=== PATIENT | female | born 1965 | race Two or more races ===

== ENCOUNTER 2016-07-04 21:10 | Emergency (ER) | payer OTHER ==
--- NOTE | 2016-07-04 21:15 | PDOC ---
History of Present Illness - General History Source: Patient Exam Limitations: No Limitations - History of Present Illness Initial Comments: 07/04/16 21:35 The patient is a 50 year old female, with a significant past medical history of bursitis, who presents to the emergency department with persistent right shoulder and right arm pain. The patient reports that she was seen by Dr. Archibald today and had an corticosteroid injection in her right shoulder for the bursitis but reports persistent pain and no relief of symptoms. The patient reports taking Ibuprofen for the pain, with no relief. The patient denies any extremity weakness/numbness/tingling. The patient denies any trauma or injury. PAST MEDICAL HISTORY: See HPI. PAST SURGICAL HISTORY: No significant history. FAMILY HISTORY: No pertinent history. SOCIAL HISTORY: Patient lives with family and is employed. MEDICATIONS: Reviewed. ALLERGIES: As per nursing notes. Adult ROS: General: No fevers or chills, no weakness, no weight loss. HEENT: No change in vision. No sore throat. No ear pain. CardioVascular: No chest pain or shortness of breath. Respiratory: No cough, or wheezing. Gastrointestinal: No nausea, vomiting, diarrhea or constipation, no rectal bleeding. Genitourinary: No dysuria, hematuria, or frequency. Musculoskeletal: +Right shoulder pain, right arm pain. No muscle pain or swelling. Neurologic: No headache, vertigo, dizziness or loss of consciousness. Psychiatric: No depression. Skin: No rashes or easy bruising. Endocrine: No increased thirst or abnormal weight change. Allergic: No skin or latex allergy. All other systems reviewed and normal. Basic Exam: GENERAL: The patient is awake, alert, and fully oriented, in no acute distress. HEAD: Normal with no signs of trauma. EYES: Pupils equal, round and reactive to light, extraocular movements intact, sclera anicteric, conjunctiva clear. MUSCULOSKELETAL: Diffuse tenderness over the lateral and posterior right shoulder. No erythema, no edema, no increased warmth. Limited range of motion secondary to pain. Increased pain with passive and active range of motion. Neurovascularly intact. NEUROLOGICAL: Normal speech, normal gait. PSYCH: Normal mood, normal affect. SKIN: Warm, dry, normal turgor, no rashes or lesions noted. <Harika Vincent - Last Filed: 07/04/16 21:35> - General History Source: Patient Exam Limitations: No Limitations - History of Present Illness Initial Comments: 07/04/16 21:40 A portion of this note was documented by scribe services under my direction. I have reviewed the details of the note, within reason, and agree with the documentation. The case summary and management plan written by me. Assessment and plan: This is a 50-year-old female who has a long history of chronic right shoulder pain. Patient's an orthopedist today and had a steroid injection. Patient said now the pain is worse and comes in for reevaluation. There is no evidence of the infection or inflammation in the area of the injection. There is decreased range of motion and pain of the shoulder. Neurovascular is intact. Patient given some Percocet and a sling and told to follow-up with the orthopedist again tomorrow. <Kim Silvestre I - Last Filed: 07/04/16 21:42> - General Chief Complaint: Pain, Acute Stated Complaint: RT SHOULDER PAIN Time Seen by Provider: 07/04/16 21:15 Past History <Harika Vincent - Last Filed: 07/04/16 21:35> - Psycho/Social/Smoking Cessation Hx Suicidal Ideation: No Smoking History: Never smoked <Kim Silvestre I - Last Filed: 07/04/16 21:42> - Past Medical History Allergies/Adverse Reactions: Allergies Allergy/AdvReac Type Severity Reaction Status Date / Time No Known Allergies Allergy Unverified 07/04/16 21:11 Home Medications: Ambulatory Orders Ibuprofen [Motrin -] 600 mg PO PRN PRN 07/04/16 Multivitamin [Poly-Vitamin] 1 each PO DAILY 07/04/16 Oxycodone HCl/Acetaminophen [Percocet 5-325 mg Tablet] 1 tab PO Q4H PRN #10 tablet MDD 6 07/04/16 *Physical Exam - Vital Signs Last Vital Signs Temp Pulse Resp BP Pulse Ox 97.3 F L 80 18 155/95 99 07/04/16 21:13 07/04/16 21:13 07/04/16 21:13 07/04/16 21:13 07/04/16 21:13 <Harika Vincent - Last Filed: 07/04/16 21:35> - Vital Signs Last Vital Signs Temp Pulse Resp BP Pulse Ox 97.3 F L 80 18 155/95 99 07/04/16 21:13 07/04/16 21:13 07/04/16 21:13 07/04/16 21:13 07/04/16 21:13 <Kim Silvestre I - Last Filed: 07/04/16 21:42> *DC/Admit/Observation/Transfer - Attestations Scribe Attestion: 07/04/16 21:17 Documentation prepared by Harika Vincent, acting as medical practice manager for Kim Silvestre MD. <Harika Vincent - Last Filed: 07/04/16 21:35> - Discharge Dispostion Admit: No <Kim Silvestre I - Last Filed: 07/04/16 21:42> Diagnosis at time of Disposition: Right shoulder pain Qualifiers: Chronicity: chronic Qualified Code(s): M25.511 - Pain in right shoulder; G89.29 - Other chronic pain - Discharge Dispostion Disposition: HOME Condition at time of disposition: Stable - Prescriptions Prescriptions: Oxycodone HCl/Acetaminophen [Percocet 5-325 mg Tablet] 1 tab PO Q4H PRN #10 tablet MDD 6 PRN Reason: Pain - Referrals Referrals: Eb Archibald MD [Primary Care Provider] - - Patient Instructions Additional Instructions: Wear the sling as needed for additional support and comfort while awake. For the pain take Percocet one or 2 tablet as often as every 4-6 hours as needed. Try to limit the pain Percocet to the nighttime hours as it will make you drowsy. Call Dr. Archibald in the morning and get an appointment to follow-up with him tomorrow if possible. Return to the emergency department immediately with ANY new, persistent or worsening symptoms. Continue any medications as previously prescribed by your physician. . Please make sure your doctor reviews the results of your emergency evaluation. Thank you for coming to the Emergency Department today for your care. It was a pleasure to see you today. Please note that your evaluation is INCOMPLETE until you follow-up with your doctor.
[2016-07-04 21:27] VITALS: BP 155/95; PULSE 80; TEMP 97.3; BMI 26.6
[2016-07-04] MEDS ORDERED: OXYCODONE/APAP 5/325MG COMBO TABLET PO ONE (21:33)
[2016-07-04] MEDS ORDERED: OXYCODONE/APAP 5/325MG COMBO TABLET ONE (21:37)
== END 2016-07-04 21:45 | disposition home or self-care (01) ==
LOC: FER 21:10
DX: M25.511 Pain in right shoulder (principal); G89.29 Other chronic pain
CPT/HCPCS: 99282-25

== ENCOUNTER 2016-09-18 18:52 | Observation (INO) | payer OTHER ==
--- NOTE | 2016-09-18 19:13 | PDOC ---
History of Present Illness - General History Source: Patient Exam Limitations: No Limitations <Rojas Kirkpatrick - Last Filed: 09/18/16 21:40> - General History Source: Patient Exam Limitations: No Limitations <BettyvaibhavBrianatitovaibhav Keys - Last Filed: 09/18/16 22:29> - General Chief Complaint: Pain, Acute Stated Complaint: R CHEST PAIN Time Seen by Provider: 09/18/16 19:11 - History of Present Illness Initial Comments: 09/18/16 20:05 The patient is a 51 year old female with a significant past medical history of bursitis, who presents to the ED with worsening chest pain. Patient states the chest pain first started 3 weeks ago. She states she was unable to sleep last night due to the Chest pain. She had motrin which helped alleviate her symptoms. She describes the chest pain as constant, sharp and non-radiating. She complains of back pain as well. She denies SOB, palpitations, fever, chills, nausea, vomiting, diarrhea. She denies dysuria, frequency, hematuria. PAST MEDICAL HISTORY: bursitis PAST SURGICAL HISTORY: no significant history FAMILY HISTORY: no pertinent history SOCIAL HISTORY: Pt lives with family and is employed. MEDICATIONS: reviewed ALLERGIES: As per nursing notes ROS General: No fevers or chills, no weakness, no weight loss HEENT: No change in vision. No sore throat,. No ear pain CardioVascular: + chest pain. No shortness of breath Respiratory:No cough, or wheezing. Gastrointestinal: no nausea, vomiting, diarrhea or constipation, No rectal bleeding Genitourinary: No dysuria, hematuria, or frequency Musculoskeletal: No joint or muscle pain or swelling Neurologic: No headache, vertigo, dizziness or loss of consciousness Psychiatric: nor depression Skin: No rashes or easy bruising Endocrine: no increased thirst or abnormal weight change Allergic: no skin or latex allergy All other systems reviewed and normal Exam: General: Well-nourished well-developed individual, anxious appearing. HEENT: Throat: Normal, tonsils normal, no erythema or exudate Neck: Supple, no meningeal signs, no lymphadenopathy Eyes::Pupils equal reactive and round, extraocular motion intact Chest: Nontender to palpation Cardiac: S1-S2 normal, regular rate and rhythm, no murmurs rubs or gallops Respiratory: Lungs clear to auscultation bilateral Abdomen: Soft, nondistended, normal bowel sounds, nontender to palpation diffusely Extremities: Warm, dry, no cyanosis, clubbing, or edema Skin: No rashes Neuro: Alert and oriented x3, nonfocal exam, grossly intact, normal gait Psych: Normal mood and affect (Rojas Kirkpatrick) 09/18/16 20:22 A portion of this note was documented by scribe services under my direction. I have reviewed the details of the note, within reason, and agree with the documentation. The case summary and management plan written by me. EKG: Shows an incomplete right bundle-branch block rate of 63 sinus rhythm no acute ST-T wave changes Chest x-ray no acute pathology normal chest x-ray Assessment and plan: This is a 51-year-old female with no cardiac risk factors who comes in complaining of left-sided chest pain intermittent times several weeks but worse over the last days. Patient denies any history of similar pain in the past prior to 3 weeks ago patient denies any associated symptoms of shortness of breath, diaphoresis, nausea or radiation. Patient had a workup that revealed a troponin of 0.06 which is still within the normal limit but measurable. Patient's heart score is 3 however given the fact that her troponin is measurable will be placed in observation to rule her out for cardiac causes of her pain. Her troponin will be repeated 2 more times prior to her discharge Discussed with Dr. Acosta who has accepted the patient for an observation bed. (Kim Silvestre I) Past History <Rojas Kirkpatrick - Last Filed: 09/18/16 21:40> - Past Medical History Other medical history: DENIES - Psycho/Social/Smoking Cessation Hx Anxiety: No Suicidal Ideation: No Smoking History: Never smoked Hx Alcohol Use: No Drug/Substance Use Hx: No Substance Use Type: None <Kim Silvestre I - Last Filed: 09/18/16 22:29> - Past Medical History Allergies/Adverse Reactions: Allergies Allergy/AdvReac Type Severity Reaction Status Date / Time No Known Allergies Allergy Verified 09/18/16 18:53 Home Medications: Ambulatory Orders Amoxicillin - [Amoxicillin 500mg Capsule -] 500 mg PO ASDIR 09/18/16 - Vital Signs Last Vital Signs Temp Pulse Resp BP Pulse Ox 98.5 F 71 16 117/83 100 09/18/16 18:52 09/18/16 18:52 09/18/16 18:52 09/18/16 18:52 09/18/16 22:22 Heart Score/ECG Review - History History: Slightly suspicious - Electrocardiogram EKG: Non specific repolarization disturbance - Age Age: 45-65 - Risk Factors Based on the list above the patient has:: No risk factors known - Troponin Troponin: 1-3x normal limit - Score Heart Score - Total: 3 <Kim Silvestre I - Last Filed: 09/18/16 22:29> - ADDITIONAL ORDERS Additional order review: Laboratory Results 09/18/16 09/18/16 19:54 19:36 Creatine Kinase 182 H CK-MB (CK-2) 5.3 H Troponin I 0.06 Urine HCG, Qual Negative - RADIOLOGY Radiology Studies Ordered: Category Date Time Status CHEST PA & LAT [RAD] Stat Radiology 09/18/16 19:30 Taken - Medications Given in the ED: ED Medications Discontinued Medications Generic Name Dose Route Start Last Admin Trade Name Freq PRN Reason Stop Dose Admin Aspirin 325 mg 09/18/16 22:20 09/18/16 22:21 Asa - PO 09/18/16 22:21 325 mg ONCE ONE Administration Medical Decision Making <Rojas Kirkpatrick - Last Filed: 09/18/16 21:40> <Kim Silvestre I - Last Filed: 09/18/16 22:29> - Medical Decision Making 09/18/16 21:[address] Acosta for admission. (Rojas Kirkpatrick) *DC/Admit/Observation/Transfer <Rojas Kirkpatrick - Last Filed: 09/18/16 21:40> - Discharge Dispostion Admit: Yes <Kim Silvestre I - Last Filed: 09/18/16 22:29> Diagnosis at time of Disposition: Chest pain Qualifiers: Chest pain type: unspecified Qualified Code(s): R07.9 - Chest pain, unspecified - Discharge Dispostion Condition at time of disposition: Stable - Attestations Scribe Attestion: 09/18/16 20:10 Documentation prepared by Rojas Kirkpatrick, acting as medical appointment clerk for Kim Silvestre MD. (Rojas Kirkpatrick)
[2016-09-18 20:51] LABS: TROPONIN I (DFP) 0.06 ng/ml (0.03-0.50)
[2016-09-18 20:52] LABS: CK MB 5.3 ng/ml (0.3-4.0)
[2016-09-18] MEDS ORDERED: ASPIRIN 81 MG CHEWABLE TABLETS PO ONE (22:20)
[2016-09-18] MEDS ORDERED: ASPIRIN 325 MG TABLET ONE (22:24)
[2016-09-18 22:57] LABS: URINE APPEARANCE Clear; URINE BILIRUBIN Negative (NEGATIVE); URINE BLOOD Negative (NEGATIVE); URINE GLUCOSE (UA) Negative (NEGATIVE); URINE KETONE Negative (NEGATIVE); URINE LEUK ESTERASE Negative (NEGATIVE); URINE NITRITE Negative (NEGATIVE); URINE PROTEIN Negative (NEGATIVE); URINE UROBILINOGEN 0.2 E.U/dl (0.2-1.0)
[2016-09-18 22:58] LABS: BASOPHIL 0.9 % (0-2.0); EOSINOPHIL 1.8 % (0-4.5); MCH 28.3 pg (25.7-33.7); MCHC 33.9 g/dl (32.0-36.0); MEAN CELL VOLUME 83.3 fl (80-96); MEAN PLT VOLUME 8.6 fl (7.5-11.1); NEUTROPHILS 58.8 % (42.8-82.8); PLATELET COUNT 250 K/MM3 (134-434); RDW 13.5 % (11.6-15.6); URINE COLOR YELLOW; WHITE BLOOD COUNT 6.2 K/mm3 (4.0-10.8)
[2016-09-18 23:12] LABS: ALBUMIN 3.9 g/dl (3.5-5.0); ALK PHOS 79 U/L (32-92); ANION GAP 8 (8-16); BILIRUBIN,TOTAL 0.5 mg/dl (0.2-1.0); CALCIUM 9.3 mg/dl (8.4-10.2); CO2 29 mmol/L (22-28); CREATININE 0.8 mg/dl (0.6-1.3); GLUCOSE,RANDOM 108 mg/dl (74-106); SGOT/AST 24 U/L (10-42); SGPT/ALT 28 U/L (10-40); TOT PROT 6.6 g/dl (6.4-8.3)
--- NOTE | 2016-09-18 23:48 | HP ---
Admitting History and Physical - Admission Chief Complaint: Chest pressure sev days pre admisssion. History of Present Illness: 51 F w/o CAD risk factors or sign [facility] rep[orts insiduos onset SSCpain w/o assoc symptoms. Significantly she had a second Garcia Leg Sclerotherpy in [facility] x 3 weeks ago ( 1st done > 10yrs ago) and did have some disconfort in left medila lower leg tho w/o edema redness or difficulty walking. Pt came to ED for chest pain. Reports Has general Myalgia occas assoc w light digital touch.Also reports Many diff stressors. In ED the physician Ordered a D-Dimer due to reports ofRecent BLE Vasc Sx Plus recent travel which was elevated.a CTA of chest to r/o P Emboli was Neg. Pt was placed under Obsrevation To R/O Acute Coronary Event ( [place]). History Source: Patient Limitations to Obtaining History: No Limitations - Past Medical History [employer] ENG[employer]: Yes: Other Cardiovascular: Yes: Other (NONE; Varicose Veins) Pulmonary: Yes: Other (NONE) - Past Surgical History Additional Past Surgical History: Garcia Leg Sclerotherapy x 2 (> 10 yrs and ~ 3 weeks ago; both in [facility] [place]. Garcia Breast Implants - Smoking History Smoking history: Never smoked - Alcohol/Substance Use Hx Alcohol Use: No Home Medications - Allergies Allergies/Adverse Reactions: Allergies Allergy/AdvReac Type Severity Reaction Status Date / Time No Known Allergies Allergy Verified 09/18/16 18:53 Physical Examination Vital Signs: Vital Signs Temperature 98.5 F 09/18/16 18:52 Pulse Rate 71 09/18/16 18:52 Respiratory Rate 16 09/18/16 18:52 Blood Pressure 117/83 09/18/16 18:52 O2 Sat by Pulse Oximetry (%) 100 09/18/16 22:22 Constitutional: Yes: No Distress, Calm Neck: Yes: Supple, Trachea Midline, Other Cardiovascular: Yes: Regular Rate and Rhythm, JVD (No), Murmur (No), Varicosities (S/P Sclerotherapy NO Symptos) Respiratory: Yes: Regular, CTA Bilaterally Gastrointestinal: Yes: Normal Bowel Sounds, Abdomen, Obese Breast(s): Yes: Breast Implants (per reported hx) Musculoskeletal: Yes: WNL Extremities: Yes: WNL, Calf Tenderness (none) Edema: No Peripheral Pulses WNL: No Integumentary: Yes: WNL Neurological: Yes: Alert, Oriented (x3) ...Motor Strength: WNL Psychiatric: Yes: WNL, Alert, Oriented (x3) Labs: Laboratory Last Values WBC 6.2 K/mm3 (4.0-10.8) 09/18/16 22:10 RBC 4.25 M/mm3 (3.60-5.2) 09/18/16 22:10 Hgb 12.0 GM/dl (10.7-15.3) 09/18/16 22:10 Hct 35.4 % (32.4-45.2) 09/18/16 22:10 MCV 83.3 fl (80-96) 09/18/16 22:10 MCHC 33.9 g/dl (32.0-36.0) 09/18/16 22:10 RDW 13.5 % (11.6-15.6) 09/18/16 22:10 Plt Count 250 K/MM3 (134-434) 09/18/16 22:10 MPV 8.6 fl (7.5-11.1) 09/18/16 22:10 Neutrophils % 58.8 % (42.8-82.8) 09/18/16 22:10 Lymphocytes % 33.0 % (8-40) 09/18/16 22:10 Monocytes % 5.5 % (3.8-10.2) 09/18/16 22:10 Eosinophils % 1.8 % (0-4.5) 09/18/16 22:10 Basophils % 0.9 % (0-2.0) 09/18/16 22:10 D-Dimer 553 ng/ml (<200-235) H 09/19/16 07:24 Sodium 140 mmol/L (136-145) 09/18/16 22:10 Potassium 4.0 mmol/L (3.5-5.1) 09/18/16 22:10 Chloride 103 mmol/L (98-107) 09/18/16 22:10 Carbon Dioxide 29 mmol/L (22-28) H 09/18/16 22:10 Anion Gap 8 (8-16) 09/18/16 22:10 BUN 19 mg/dl (7-18) H 09/18/16 22:10 Creatinine 0.8 mg/dl (0.6-1.3) 09/18/16 22:10 Creat Clearance w eGFR > 60 (>60) 09/18/16 22:10 Random Glucose 108 mg/dl (74-106) H 09/18/16 22:10 Calcium 9.3 mg/dl (8.4-10.2) 09/18/16 22:10 Total Bilirubin 0.5 mg/dl (0.2-1.0) 09/18/16 22:10 AST 24 U/L (10-42) 09/18/16 22:10 ALT 28 U/L (10-40) 09/18/16 22:10 Alkaline Phosphatase 79 U/L (32-92) 09/18/16 22:10 Creatine Kinase 138 IU/L (26-140) 09/19/16 11:32 Creatine Kinase Index 2.2 % (0.0-5.0) 09/19/16 03:45 CK-MB (CK-2) 3.373 ng/ml (0.5-3.6) 09/19/16 03:45 Troponin I 0.06 ng/ml (0.03-0.50) 09/19/16 11:32 Total Protein 6.6 g/dl (6.4-8.3) 09/18/16 22:10 Albumin 3.9 g/dl (3.5-5.0) 09/18/16 22:10 Urine Color Yellow 09/18/16 22:10 Urine Appearance Clear 09/18/16 22:10 Urine pH 6.0 (4.5-8) 09/18/16 22:10 Ur Specific [place] 1.020 (1.005-1.025) 09/18/16 22:10 Urine Protein Negative (NEGATIVE) 09/18/16 22:10 Urine Glucose (UA) Negative (NEGATIVE) 09/18/16 22:10 Urine Ketones Negative (NEGATIVE) 09/18/16 22:10 Urine Blood Negative (NEGATIVE) 09/18/16 22:10 Urine Nitrite Negative (NEGATIVE) 09/18/16 22:10 Urine Bilirubin Negative (NEGATIVE) 09/18/16 22:10 Urine Urobilinogen 0.2 e.u/dl (0.2-1.0) 09/18/16 22:10 Ur Leukocyte Esterase Negative (NEGATIVE) 09/18/16 22:10 Urine HCG, Qual Negative 09/18/16 19:36 Trop <0.02 -> 0.06 D-Dimer 553 Imaging - Results Cat Scan: Report Reviewed (CTA Chest NEGATIVE) EKG: Report Reviewed (63 n[employer] Inc RBBB no isch ch) Problem List - Problems (1) Chest pain Assessment/Plan: SSCP w/o assoc SXS ~ 3wks w/o CAD risk factors or assoc sxs. Placed on Observation to R/O acute Coronary event/disease. Cardiology Consult requesrted. Cardiac enzymes and Echo as well. Anticipate Dc home within 48 hrs if benign findings. 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 Due To elev D-Dimer A CTA Chest oredered but No Evidence of P Emboli Was Found. Pt Clinical exam WAS Unremarkable Incl GARCIA NEVAEH and Varicosities. Code(s): I83.92 - ASYMPTOMATIC VARICOSE VEINS OF LEFT LOWER EXTREMITY (3) Elevated d-dimer Assessment/Plan: SEE Above Notes; No Evidece of P Emboli By Exam Or imaging data. Code(s): R79.89 - OTHER SPECIFIED ABNORMAL FINDINGS OF BLOOD CHEMISTRY
[2016-09-19 01:12] VITALS: BMI 26.4
[2016-09-19 05:36] LABS: TROPONIN I < 0.02 ng/ml (0.00-0.05)
--- NOTE | 2016-09-19 08:41 | EKG ---
Test Reason : Blood Pressure : / mmHG Vent. Rate : 063 BPM Atrial Rate : 063 BPM P-R Int : 156 ms QRS Dur : 092 ms QT Int : 422 ms P-R-T Axes : 060 000 046 degrees QTc Int : 431 ms NORMAL SINUS RHYTHM INCOMPLETE RIGHT BUNDLE BRANCH BLOCK BORDERLINE ECG NO PREVIOUS ECGS AVAILABLE Confirmed by SHANTA VERGARA MD ([id number]) on 09/19/2016 8:41:10 AM Referred By: MD BALLESTEROS Confirmed By:SHANTA VERGARA MD
[2016-09-19] MEDS ORDERED: HEPARIN NA (PORCINE) 5,000 UNITS/ML 1ML VIAL SQ SCH (10:00)
[2016-09-19 12:20] LABS: TROPONIN I (DFP) 0.06 ng/ml (0.03-0.50)
[2016-09-19 14:28] VITALS: BP 106/64; PULSE 64; TEMP 98.1
--- NOTE | 2016-09-19 17:36 | CON.CARD ---
Cardiology Consult (text) - Consultation Consultation Note: CC: CP 51 year old female with a significant past medical history of bursitis, who presents to the ED with worsening chest pain. Patient states the chest pain first started 3 weeks ago. She states she was unable to sleep last night due to the Chest pain. She had motrin which helped alleviate her symptoms. She describes the chest pain as constant, sharp and non-radiating. She complains of back pain as well. She denies SOB, palpitations, fever, chills, nausea, vomiting, diarrhea. She denies dysuria, frequency, hematuria. PAST MEDICAL HISTORY: bursitis PAST SURGICAL HISTORY: no significant history FAMILY HISTORY: no pertinent history SOCIAL HISTORY: Pt lives with family and is employed. Ambulatory Orders Amoxicillin - [Amoxicillin 500mg Capsule -] 500 mg PO ASDIR 09/18/16 Current Medications Heparin Sodium (Porcine) (Heparin -) 5,000 unit SQ BID MACARIO Last Admin: 09/19/16 10:23 Dose: 5,000 unit Vital Signs - 24 hr 09/18/16 09/18/16 09/19/16 18:52 22:22 00:54 Temperature 98.5 F 97.9 F Pulse Rate 71 68 Respiratory 16 18 Rate Blood Pressure 117/83 128/72 O2 Sat by Pulse 100 100 100 Oximetry (%) 09/19/16 09/19/16 09/19/16 04:30 08:32 08:46 Temperature 97.8 F Pulse Rate 65 73 Respiratory 18 18 Rate Blood Pressure 117/63 130/68 O2 Sat by Pulse 100 100 Oximetry (%) 09/19/16 14:27 Temperature 98.1 F Pulse Rate 64 Respiratory 17 Rate Blood Pressure 106/64 O2 Sat by Pulse 100 Oximetry (%) Intake & Output 09/17/16 09/18/16 09/19/16 09/20/16 07:59 07:59 07:59 07:59 Weight 168 lb 9 oz CBC, BMP 09/18/16 22:10 09/18/16 22:10 Laboratory Tests 09/18/16 09/18/16 09/18/16 19:54 19:59 22:10 D-Dimer 577 H Total Bilirubin 0.5 AST 24 ALT 28 Alkaline Phosphatase 79 Creatine Kinase 182 H CK-MB (CK-2) 5.3 H Troponin I 0.06 Albumin 3.9 09/19/16 09/19/1609/19/17 03:45 07:24 11:32 D-Dimer 553 H Total Bilirubin AST ALT Alkaline Phosphatase Creatine Kinase 155 138 CK-MB (CK-2) 3.373 Troponin I < 0.02 0.06 Albumin
--- NOTE | 2016-09-19 19:47 | PN ---
Progress Note, Physician Chief Complaint: Feels better w/o Chest sxs since admission; Admitted has several diff stressprs History of Present Illness: Improved sxs see above. - Current Medication List Current Medications: Active Medications Heparin Sodium (Porcine) (Heparin -) 5,000 unit SQ BID MACARIO Last Admin: 09/19/16 10:23 Dose: 5,000 unit - Objective Vital Signs: Vital Signs Temperature 98.1 F 09/19/16 14:27 Pulse Rate 64 09/19/16 14:27 Respiratory Rate 17 09/19/16 14:27 Blood Pressure 106/64 09/19/16 14:27 O2 Sat by Pulse Oximetry (%) 100 09/19/16 14:27 Constitutional: Yes: No Distress, Calm, Obese Neck: Yes: Supple Cardiovascular: Yes: Regular Rate and Rhythm, Bruit (none) Respiratory: Yes: CTA Bilaterally Gastrointestinal: Yes: Normal Bowel Sounds Musculoskeletal: Yes: WNL Extremities: Yes: WNL, Calf Tenderness (none) Edema: No Peripheral Pulses WNL: Yes Neurological: Yes: Alert, Oriented ...Motor Strength: WNL Psychiatric: Yes: Alert, Oriented (x3) - ....Imaging Other: Report Reviewed (Echo LVEF 55-60% NL) Problem List - Problems (1) 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 Due To elev D-Dimer A CTA Chest oredered but No Evidence of P Emboli Was Found. Pt Clinical exam WAS Unremarkable Incl ANANYA NEVAEH and Varicosities. Code(s): I83.92 - ASYMPTOMATIC VARICOSE VEINS OF LEFT LOWER EXTREMITY (2) Chest pain Assessment/Plan: SSCP w/o assoc SXS ~ 3wks w/o CAD risk factors or assoc sxs. Placed on Observation to R/O acute Coronary event/disease. w no evidence of acute cardiac event or CAD. Cardiology saw pt and deemed pt cleraed for dc home from Cardiac point of view; recommended make outpt appt. pt medically cleared to dc home. Code(s): R07.9 - CHEST PAIN, UNSPECIFIED Qualifiers: Chest pain type: unspecified Qualified Code(s): R07.9 - Chest pain, unspecified (3) Elevated d-dimer Assessment/Plan: SEE Above Notes; No Evidece of P Emboli By Exam Or imaging data. Code(s): R79.89 - OTHER SPECIFIED ABNORMAL FINDINGS OF BLOOD CHEMISTRY
== END 2016-09-19 21:35 | disposition home or self-care (01) ==
LOC: FER 18:52 → FM/S 22:43
PROC: 3E013GC Introduction of Other Therapeutic Substance into Subcutaneous Tissue, Percutaneous Approach (ICD-10-PCS; principal; 2016-09-18)
DX: R07.9 Chest pain, unspecified (principal); I83.92 Asymptomatic varicose veins of left lower extremity; R79.89 Other specified abnormal findings of blood chemistry; Z87.39 Personal history of other diseases of the musculoskeletal system and connective tissue
CPT/HCPCS: 36415; 71020-TC; 71275-TC; 80053; 81003; 82550; 82553; 84484; 84703; 85025; 85379; 93005; 93306-TC; 99284-25; G0378; J1644

== ENCOUNTER 2021-01-26 16:45 | Emergency (ER) | payer BC, OTHER ==
[2021-01-26 16:57] VITALS: BP 127/87; PULSE 74; TEMP 98; BMI 26.6
[2021-01-26] MEDS ORDERED: IBUPROFEN 400 MG TABLET (FP) PO ONE ×2 (17:20→17:28)
== END 2021-01-26 18:26 | disposition home or self-care (01) ==
LOC: FER 16:45
DX: M25.562 Pain in left knee (principal)
CPT/HCPCS: 73562-TC-LT-FY; 99284-25